=== PATIENT | male | born 1970 | race Caucasian/White ===

== ENCOUNTER 2022-05-26 15:20 | Outpatient (REF) | payer OTHER, SELFPAY ==
[2022-05-26 16:54] LABS: Hematocrit 42.3 % (42.0-52.0); Hemoglobin 14.2 g/dl (14.0-18.0); Mean Corpuscular HGB Conc 33.6 g/dl (31.0-36.0); Mean Corpuscular Hemoglobin 28.8 pg (27.0-33.0); Mean Corpuscular Volume 85.8 fL (80.0-98.0); Mean Platelet Volume 9.4 fL (9.4-12.4); Platelet Count 292 X10*3/uL (160-400); Red Blood Count 4.93 X10*6/uL (4.60-5.80); Red Cell Distribution Width 12.1 % (11.0-16.0); White Blood Count 6.7 X10*3/uL (4.8-10.8)
[2022-05-26 17:38] LABS: Alanine Aminotransferase 28 U/L (0-40); Albumin Level 4.5 g/dL (3.5-5.0); Alkaline Phosphatase 78 U/L (39-117); Anion Gap 14 (12-20); Aspartate Amino Transferase 24 U/L (5-37); Bilirubin Total 0.6 mg/dL (0.0-1.0); Blood Urea Nitrogen 15 mg/dL (9-16); Calcium 9.8 mg/dL (8.4-10.2); Carbon Dioxide 28 mmol/L (22-29); Chloride 106 mmol/L (96-108); Cholesterol 245 mg/dL; Estimated Glomerular Filt Rate > 60; Glucose Fasting 70 mg/dL (60-99); HDL Cholesterol 55 mg/dL; LDL Cholesterol Calculated 174 mg/dl; Potassium 4.7 mmol/L (3.3-5.1); Sodium 143 mmol/L (135-145); TSH reflex Free T4 14.63 uIU/mL (0.32-4.0); Total Protein 7.4 g/dL (6.5-8.0); Triglycerides 82 mg/dL
== END 2022-05-26 15:21 | disposition home or self-care (01) ==
LOC: HO.LAB 15:20
PROVIDERS: PCP Physician Assistant; Visit Provider Physician Assistant
DX: Z12.5 Encounter for screening for malignant neoplasm of prostate (principal); Z13.1 Encounter for screening for diabetes mellitus; Z13.220 Encounter for screening for lipoid disorders; E03.9 Hypothyroidism, unspecified
CPT/HCPCS: 36415; 80053; 80061; 84153; 84439; 84443; 85027

== ENCOUNTER → 2022-08-11 14:51 | Outpatient (BNVA) | payer OTHER, SELFPAY | PROVIDERS: PCP Physician Assistant; Visit Provider Physician Assistant | DX: Z13.89 Encounter for screening for other disorder (principal) ==

== ENCOUNTER 2022-10-21 14:22 | Outpatient (REF) | payer OTHER, SELFPAY ==
--- NOTE | ~2022-10-21 | XR_ITS ---
EXAMINATION: XR FOOT, RIGHT CLINICAL INFORMATION: Pain COMPARISON: None available. TECHNIQUE: AP, lateral, and oblique views of the right foot. FINDINGS: No acute fracture or dislocation. Joint spaces are maintained. Soft tissues are unremarkable. Well corticated osseous fragment along the dorsum of the navicular bone may reflect sequelae of remote fracture deformity. Small tibiotalar joint effusion. XR/XR foot RT 2V IMPRESSION: 1. Well corticated osseous fragment along the dorsum of the navicular bone may reflect sequelae of remote fracture deformity. 2. Small tibiotalar joint effusion. 3. No acute osseous abnormality.
[2022-10-21 14:44] LABS: Hematocrit 40.2 % (42.0-52.0); Hemoglobin 13.6 g/dl (14.0-18.0); Mean Corpuscular HGB Conc 33.8 g/dl (31.0-36.0); Mean Corpuscular Hemoglobin 28.3 pg (27.0-33.0); Mean Corpuscular Volume 83.8 fL (80.0-98.0); Mean Platelet Volume 9.1 fL (9.4-12.4); Platelet Count 251 X10*3/uL (160-400); Red Cell Distribution Width 12.5 % (11.0-16.0); White Blood Count 5.9 X10*3/uL (4.8-10.8)
[2022-10-21 16:02] LABS: Alanine Aminotransferase 28 U/L (0-40); Albumin Level 4.3 g/dL (3.5-5.0); Alkaline Phosphatase 78 U/L (39-117); Anion Gap 12 (12-20); Aspartate Amino Transferase 24 U/L (5-37); Bilirubin Total 0.6 mg/dL (0.0-1.0); Blood Urea Nitrogen 15 mg/dL (9-16); Calcium 9.5 mg/dL (8.4-10.2); Carbon Dioxide 27 mmol/L (22-29); Chloride 108 mmol/L (96-108); Cholesterol 250 mg/dL; Estimated Glomerular Filt Rate > 60; Glucose Fasting 90 mg/dL (60-99); HDL Cholesterol 57 mg/dL; LDL Cholesterol Calculated 175 mg/dl; Potassium 3.9 mmol/L (3.3-5.1); Sodium 143 mmol/L (135-145); Total Protein 6.9 g/dL (6.5-8.0); Triglycerides 92 mg/dL
[2022-10-21 16:19] LABS: TSH reflex Free T4 9.27 uIU/mL (0.32-4.0)
[2022-10-21 18:09] LABS: Free T4 (Free Thyroxine) 0.98 ng/dL (0.71-1.85)
== END 2022-10-21 14:23 | disposition home or self-care (01) ==
LOC: HO.LAB 14:22
PROVIDERS: PCP Physician Assistant; Visit Provider Physician Assistant
DX: M79.671 Pain in right foot (principal); E03.9 Hypothyroidism, unspecified; E78.2 Mixed hyperlipidemia
CPT/HCPCS: 36415; 73620; 80053; 80061; 84439; 84443; 85027

== ENCOUNTER 2023-04-29 15:45 | Outpatient (AMB) | payer OTHER, SELFPAY ==
[2023-04-29 15:51] VITALS: BP 130/86; PULSE 69; RESP 17; O2SAT 97; BMI 28.0
--- NOTE | 2023-04-29 15:51 | A.OFFPC_ITS ---
Vital Signs 04/29/23 15:51 Height 5 ft 8 in Weight 184 lb 4 oz BMI 28.0 BP 130/86 Blood Pressure Location Lt brachial Position Sitting Respiration 17 Pulse 69 Pulse Source Pulse Oximeter Pulse Oximetry (%) 97 Oxygen Delivery Method Room Air Intake Visit Reasons: f/u Hypothyroid Shield Runner Required: No Accompanied by: Self / Same As Patient Allergies No Known Allergies Allergy (Verified 04/29/23 15:58) Medication List - Last Reconciled 04/29/23 by Oscar Vela PA-C bisacodyl (Dulcolax (bisacodyl)) 10 mg (2 x 5 mg) PO ONCE 1 day levothyroxine 125 mcg PO DAILY 30 days polyethylene glycol 3350 (Miralax) 238 grams PO ONCE 1 day Tobacco use date assessed: 10/21/22 Dental Screening Dental Screen Date: 04/29/23 Did you have a dental visit in the last 12 months?: No Did you have a dental problem in the last 6 months where you did not have access to dental care?: No Was dental information given to patient?: Patient has dentist HPI f/u Hypothyroid HPI Details Patient is a 52-year-old male here today for follow-up visit.? Patient has a past medical history significant for hypothyroidism, ADHD. Concern--> recently had an issue with his right foot/ankle. Followed up with an orthopedic surgeon though fortunately his ankle ligaments healed on their own. No surgery needed . Hypothyroidism:? Patient now on levothyroxine 100 mcg.? Most recent TSH at 14. Has restarted his levothyroxine and taking and daily basis. Will recheck his TSH .. Hyperlipidemia: Most recent lipid panel showing elevated total cholesterol and LDL though in the setting of under active thyroid. .. ADHD:? 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 Often needs to stay very focused on his job tasks. Has tried Vyvanse recently though felt it was not effective and gave him side effect. He would like to return to using Adderall for work days. Laboratory Tests 05/26/22 10/21/22 15:37 14:34 TSH 14.63 H 9.27 H PFSH Surgical History S/P wisdom tooth extraction Family History Mother Ovarian cancer Father Stroke (cerebrum) Afib Hypertension Social History Housing: House Alcohol intake: current Alcohol intake frequency: a few times a month Alcohol type: beer Patient Tobacco Use Status: Never used Tobacco e-Cigarette/Vaping Use: Never Used Second Hand Smoke Exposure: No service: No Current occupational status: employed Current occupation: senior principal process engineer supervisor [employer] Cognitive needs: No Hearing needs: No Vision needs: No Questionnaire Thrive Questionnaire Date Thrive assessed: 10/21/22 HAILEY-7 AMB Questionnaire HAILEY-7 Date HAILEY - 7 assessed: 10/21/22 Source: Developed by Drs. Kentrell Toscano, Keeley Crane, Vik López and colleagues, with an educational astrid from [employer]. Review of Systems Const Denies headache(s) Eyes Denies loss of vision ENT Denies vertigo, Denies dizziness, Denies headache(s) and Denies sore throat Card Denies chest pain, Denies leg edema and Denies lightheadedness Resp Denies cough, Denies hemoptysis and Denies wheezing GI Denies abdominal pain, Denies melena, Denies constipation, Denies diarrhea and Denies vomiting Denies dysuria, Denies urinary frequency and Denies urinary urgency Musc Denies arthralgias, Denies joint swelling, Denies numbness and Denies tingling Neuro Denies Abnormal speech present, Denies behavioral changes, Denies vertigo, Denies dizziness, Denies headache(s), Denies loss of vision, Denies memory loss, Denies numbness and Denies tingling Psych Denies anxiety, Denies behavioral changes, Denies depression, Denies memory loss and Denies panic attacks Maury/Lymph Denies easy bleeding and Denies easy bruising Aller/Immun Denies wheezing Physical exam (Primary Care) Vital Signs: Last Vital Signs Pulse 69 04/29/23 15:51 Resp 17 04/29/23 15:51 BP 130/86 04/29/23 15:51 Pulse Ox 97 04/29/23 15:51 Oxygen Delivery Method Room Air 04/29/23 15:51 BMI result Body Mass Index 28.0 Tobacco/Smoking Status: Tobacco use Status Tobacco use date assessed 10/21/22 04/29/23 15:53 Patient Tobacco Use Status Never used Tobacco 04/29/23 15:53 e-Cigarette/Vaping Use Never Used 04/29/23 15:53 Thrive Assessment: Date of Thrive Assessment Date Thrive assessed 10/21/22 04/29/23 15:53 Const General: healthy appearing, no acute distress, alert and awake Nutritional Appearance: well nourished Orientation/consciousness: oriented to person, oriented to place and oriented to time HENMT Ears: TM's normal bilaterally General nose exam: Normal nasal mucous membranes and turbinates present Eyes Conjunctivae: conjunctivae normal Sclerae: sclerae normal Pupils: Equal, round and reactive pupils present Neck Neck: Yes no lymphadenopathy and Yes no JVD Thyroid: Thyroid normal Carotids: no bruits Resp Effort & Inspection: normal respiratory effort and not tachypneic Auscultation: no crackles, no rales, no rhonchi and no wheezes Cardio Rate: regular rate Rhythm: regular rhythm Heart sounds: no murmurs and normal S1 and S2 GI Palpation (GI): Soft to palpation, nontender, no hepatomegaly and no splenomegaly Auscultation: normal bowel sounds Skin General skin exam: no rashes or lesions noted and dry skin Neuro General: oriented to person, oriented to place and oriented to time Cranial nerves: Yes Equal, round and reactive pupils present Speech: No Abnormal speech present Gait exam (Neuro): Normal gait present Motor exam (neuro): no tremor noted Extrem Right upper extremity: full ROM Left upper extremity: full ROM Right lower extremity: full ROM; no edema Left lower extremity: full ROM; no edema Psych Mental Status: mental status grossly normal Speech and movement: Normal speech and movement present Affect: normal affect Attitude: cooperative Thought process: Normal thought process present Assessment and Plan Assessment & Plan (1) ADHD: Code(s): F90.9 - Attention-deficit hyperactivity disorder, unspecified type Qualifiers: Attention deficit-hyperactivity disorder type: predominantly inattentive Qualified Code(s): F90.0 - Attention-deficit hyperactivity disorder, predominantly inattentive type Plan: As per HPI patient has a long history of ADHD. Has tried Vyvanse though was ineffective and gave him side effects. Will like to return to using Adderall extended release on work days which has worked for him in the past. Signed drug contract and is willing to do drug screen (2) Hypothyroid: Code(s): E03.9 - Hypothyroidism, unspecified Qualifiers: Hypothyroidism type: unspecified Qualified Code(s): E03.9 - Hypothyroidism, unspecified Plan: Patient continues on daily use of levothyroxine 100 mcg. Most recent TSH elevated in the setting of not using the medication. Will recheck TSH to assure normal and if still under active will consider increasing dose of levothyroxine (3) HLD (hyperlipidemia): Code(s): E78.5 - Hyperlipidemia, unspecified Qualifiers: Hyperlipidemia type: mixed hyperlipidemia Qualified Code(s): E78.2 - Mixed hyperlipidemia Plan: Cholesterol elevated in the setting of under active thyroid. Will recheck fasting lipids Orders: Orders Lipid Panel 04/29/23 E78.2 - Mixed hyperlipidemia Comprehensive [place]. Panel Fast 04/29/23 E78.2 - Mixed hyperlipidemia TSH reflex Free T4 04/29/23 E03.9 - Hypothyroidism, unspecified Drug Screen Urine 04/29/23 F90.0 - Attention-deficit hyperactivity disorder, predominantly inattentive type Medications: New dextroamphetamine-amphetamine 10 mg ER (Adderall XR) Partial Fill upon patient request. 10 mg PO DAILY 28 days 28 caps 0RF F90.0 - Attention-deficit hyperactivity disorder, predominantly inattentive type Discontinued levothyroxine Discontinued Reason: Doctor's Order 125 mcg PO DAILY 30 days 90 tabs 1RF E03.9 - Hypothyroidism, unspecified Coding Level of Care Code Est Pt Level 4 (03610) Diagnoses Attention deficit hyperactivity disorder (ADHD), predominantly inattentive type F90.0 Attention deficit-hyperactivity disorder type: predominantly inattentive Hypothyroidism, unspecified type E03.9 Hypothyroidism type: unspecified Mixed hyperlipidemia E78.2 Hyperlipidemia type: mixed hyperlipidemia
== END 2023-04-29 16:22 | disposition home or self-care (01) ==
PROVIDERS: Visit Provider Physician Assistant
DX: F90.0 Attention-deficit hyperactivity disorder, predominantly inattentive type (principal); E03.9 Hypothyroidism, unspecified; E78.2 Mixed hyperlipidemia
CPT/HCPCS: 99214

== ENCOUNTER 2023-04-29 16:30 | Outpatient (REF) | payer OTHER, SELFPAY ==
[2023-04-29 17:34] LABS: Alanine Aminotransferase 30 U/L (0-40); Albumin Level 4.4 g/dL (3.5-5.0); Alkaline Phosphatase 84 U/L (39-117); Anion Gap 16 (12-20); Aspartate Amino Transferase 24 U/L (5-37); Bilirubin Total 0.6 mg/dL (0.0-1.0); Blood Urea Nitrogen 16 mg/dL (9-16); Calcium 9.4 mg/dL (8.4-10.2); Carbon Dioxide 25 mmol/L (22-29); Chloride 105 mmol/L (96-108); Cholesterol 243 mg/dL (<200); Estimated Glomerular Filt Rate > 60; Glucose Fasting 78 mg/dL (60-99); HDL Cholesterol 63 mg/dL (>40); LDL Cholesterol Calculated 166 mg/dL (<100); Sodium 142 mmol/L (135-145); Total Protein 7.5 g/dL (6.5-8.0); Triglycerides 71 mg/dL (<150)
[2023-04-29 17:49] LABS: TSH reflex Free T4 6.04 uIU/mL (0.32-4.0)
[2023-04-29 18:10] LABS: Amphetamine Screen Urine Not Detected (Not Detect); Barbiturates, Urine Not Detected (Not Detect); Benzodiazepines Screen Urine Not Detected (Not Detect); Cannabinoid Screen Urine Not Detected (Not Detect); Cocaine Screen Urine Not Detected (Not Detect); Fentanyl, urine Not Detected (Not Detect); Opiate Screen Urine Not Detected (Not Detect); Phencyclidine Screen Urine Not Detected (Not Detect)
[2023-04-29 18:19] LABS: Free T4 (Free Thyroxine) 0.91 ng/dL (0.71-1.85)
== END 2023-04-29 16:31 | disposition home or self-care (01) ==
LOC: HO.LAB 16:30
PROVIDERS: PCP Physician Assistant; Visit Provider Physician Assistant
DX: E03.9 Hypothyroidism, unspecified (principal); F90.0 Attention-deficit hyperactivity disorder, predominantly inattentive type; E78.2 Mixed hyperlipidemia; Z79.899 Other long term (current) drug therapy
CPT/HCPCS: 80053; 80061; 80307; 84439; 84443